=== PATIENT | female | born 1950 | race Caucasian/White ===

== ENCOUNTER → 2016-09-28 | Day surgery (SDC) | payer OTHER ==
[2016-09-24 15:52] VITALS: Ht 161.3 cm; Wt 79.5 kg
[~2016-09-28] VITALS: Ht 161.3 cm; Wt 79.5 kg
[~2016-09-28] MED LIST: BRIMONIDINE TART 0.2% OP SOLN PER DROP CHARGE OP SCH; BRIMONIDINE TART 0.2% OP SOLN PER DROP CHARGE OPR SCH; LATA0.009 OPB; PILOCARPINE HCL 2% OP SOLN PER DROP CHARGE OPR SCH; PROPARACAINE 0.5% OP SOLN PER DROP CHARGE OPR SCH; PrednisoLONE ACET 1% OP SUSP 5 ML BTL OP SCH; TEMA30CA4 PO; TIMO0.2530 OPB
--- NOTE | 2016-09-28 12:07 | History and Physical: Surg Cnt ---
History & Physical Date Sep 28, 2016. Chief Complaint glaucoma, right eye History of Present Illness The patient is a 65 year old female with complaints of high eye pressure Past Medical/Surgical History planter fasciitis Additional History Hepatic Disease: No Endocrine Disorder: No Kidney Disease: No Hypertension: No Heart Disease: No Bleeding Tendencies: No Infectious Diseases: No Allergies Coded Allergies: Amoxicillin (Verified Allergy, Severe, HIVES, 09/24/16) Codeine (Verified Allergy, Intermediate, HIVES, 09/24/16) Home Medications Scheduled Latanoprost (Xalatan 0.005% Oph Karlee), 1 DROPS OPB HS Temazepam (Restoril), 30 MG PO HS Timolol Maleate (Ophth) (Timolol Maleate Ophthalmi), 1 DROP OPB QAM Physical Examination Skin: warm/dry, no rash Eyes: normal inspection, EOMI, sclerae normal ENT: normal ENT inspection, pharynx normal Head: normocephalic, atraumatic Neck: supple, no adenopathy, trachea midline Respiratory/Chest: lungs clear, normal breath sounds, no respiratory distress Cardiovascular: regular rate, rhythm, no edema, no murmur Abdomen / GI: normal bowel sounds, non tender Back: normal inspection Extremities: normal inspection, normal range of motion Neurologic/Psych: no motor/sensory deficits, alert, normal reflexes, oriented x 3 Diagnosis Glaucoma right eye ASA Classification: ASA Class I Plan of Treatment Patient stable for SLT right eye
[2016-09-28 12:20] VITALS: BP 148/77; PULSE 74; O2SAT 96
--- NOTE | 2016-09-28 12:21 | Discharge Instructions-SurgCtr ---
Discharge Instructions Visit Reason for Visit: Glaucoma Right Eye Discharge Discharge Diagnosis / Problem: glaucoma, right eye Discharge Goals Goal(s): Improve disease control Activity Recommendations Activity Limitations: resume your previous activity Driving or Machine Use: no limitations Anesthesia . Post Anesthesia Instructions: If you have had General Anesthesia or IV Sedation: * Do not drive today. * Resume driving when surgeon permits. * Do not make important decisions or sign legal documents today. * Call surgeon for: 1. Temperature elevations greater than 101 degrees F. 2. Uncontrollable pain. 3. Excessive bleeding. 4. Persistent nausea and vomiting. 5. Medication intolerance (nausea, vomiting or rash). * For nausea and vomiting use only clear liquids such as: tea, soda, bouillon until nausea subsides, then gradually increase diet as tolerated. * If you have any concerns or questions, call your surgeon's office. If physician is unavailable and it is an emergency, call 911 or go to the nearest emergency room. . Instructions / Follow-Up Instructions / Follow-Up ACTIVITY RECOMMENDATIONS: * No limitations RETURN TO SCHOOL/WORK: * No limitations DIET: * No limitations MEDICATIONS: Resume previous medications unless instructed otherwise by your surgeon. * Please use Prednisolone acetate drops prescription given to you at your office appointment as follows: 1 drop in effected eye 4 times a day for 5 days. * Continue all glaucoma drops as usual with no interruption to either eye. SPECIAL CARE INSTRUCTIONS: Call your doctor at with any concerns or problems. FOLLOW UP VISIT: Follow-up with Dr Carrera in 1 hour. Diet Recommendations Home Diet: resume previous diet Pending Studies Studies pending at discharge: no Medical Emergencies . Who to Call and When: Medical Emergencies: If at any time you feel your situation is an emergency, please call 911 immediately. . Non-Emergent Contact Non-Emergency issues call your: [employer] . . "Provider Documentation" section prepared by Edis Carrera.
--- NOTE | 2016-09-28 12:22 | [facility] Operative Report ---
Operative Report Diagnosis: open angle glaucoma, right eye Procedure: SLT inferior 180 degrees, right eye. 59 spots, 1.5 mj Complications: none I attest to the content of the Intraoperative Record and any orders documented therein. Any exceptions are noted below.
== END | disposition home or self-care (01) ==
LOC: X.SURG 11:16
PROVIDERS: ATTEND Ophthalmology
DX: H40.10X0 Unspecified open-angle glaucoma, stage unspecified (principal)